=== PATIENT | male | born 1995 | race Caucasian/White ===

== ENCOUNTER 2019-09-25 22:10 | Emergency (ER) | payer SELFPAY ==
[~2019-09-25] VITALS: Ht 185.4 cm; Wt 111.1 kg
[2019-09-25 22:18] VITALS: BP 126/80
== END 2019-09-25 23:22 | disposition home or self-care (01) ==
LOC: EEVIPCON 22:10 → MED 22:10
DX: U07.1 COVID-19 (principal); B34.9 Viral infection, unspecified
CPT/HCPCS: 99283; U0003